=== PATIENT | female | born 2000 | race Caucasian/White ===

== ENCOUNTER 2024-07-20 00:47 | Inpatient (IN) ==
[2024-07-20] MEDS: predniSONE 20 MG TAB PO STA (01:28)
[2024-07-20] MEDS: ALBUT/IPRATROP 3MG/0.5MG NEB 3 ML VIAL NEB STA (01:28)
[2024-07-20] MEDS: SODIUM CHLORIDE 0.9% 1,000 ML IV ONE ×2 (01:28→16:59)
[2024-07-20 01:59] LABS: Albumin Globulin Ratio 1.2 (0.9-2); Albumin Level 4.2 gm/dl (3.4-5.0); BUN Creatinine Ratio 8.6 (10-20); Bilirubin,Total 0.5 mg/dl (0.2-1.0); Calcium 9.4 mg/dl (8.6-10.3); Creatinine Clr Calc Pharmacy 112.2 ml/min; Globulin 3.6 gm/dl (2.5-4.0); Potassium 3.8 mmol/L (3.5-5.1); Total Protein 7.8 gm/dl (6.0-8.3)
[2024-07-20 02:16] LABS: Hematocrit (blood only) 40.7 % (37.0-47.0); Hemoglobin 14.3 g/dl (12.0-16.0); Mean Corpuscular Hemoglobin 29.5 pg (25.0-34.0); Mean Corpuscular Hgb Conc 35.1 g/dL (32.0-36.0); Mean Corpuscular Volume 84.1 fL (80.0-100.0); Mean Platelet Volume 11.5 fL (9.4-12.4); Platelet Count 277 K/uL (130-400); RDW Coefficient of Variation 11.5 % (11.5-14.5); RDW Standard Deviation 34.2 fL (36.4-46.3); Red Blood Count 4.84 M/uL (4.20-5.40); White Blood Count 9.51 K/ul (4.8-10.8)
[2024-07-20 02:17] LABS: Basophils # (auto) 0.06 K/uL (0.00-0.20); Basophils % (auto) 0.6 %; Eosinophils # (auto) 0.29 K/uL (0.00-0.50); Immature Granulocytes # (auto) 0.05 K/uL (0.01-0.20); Immature Granulocytes % (auto) 0.5 %; Lymphocytes # (auto) 1.71 K/uL (1.20-3.40); Monocytes # (auto) 1.04 K/uL (0.11-0.59); Monocytes % (auto) 10.9 %; Neutrophils # (auto) 6.36 K/uL (1.40-6.50); Polychromasia 1+
[2024-07-20 02:36] LABS: Adenovirus PCR Not Detected (NotDetected); Bordetella parapertussis PCR Not Detected (NotDetected); Bordetella pertussis PCR Not Detected (NotDetected); Chlamydia pneumoniae PCR Not Detected (NotDetected); Coronavirus 229E PCR Not Detected (NotDetected); Coronavirus CoV-2 (COVID19)PCR Not Detected (NotDetected); Coronavirus HKU1 PCR Not Detected (NotDetected); Coronavirus NL63 PCR Not Detected (NotDetected); Coronavirus OC43PCR Not Detected (NotDetected); Human Metapneumovirus PCR Not Detected (NotDetected); Influenza A PCR Not Detected (NotDetected); Influenza B PCR Not Detected (NotDetected); Mycoplasma pneumoniae PCR DETECTED (NotDetected); Parainfluenza Virus 1 PCR Not Detected (NotDetected); Parainfluenza Virus 2 PCR Not Detected (NotDetected); Parainfluenza Virus 3 PCR Not Detected (NotDetected); Parainfluenza Virus 4 PCR Not Detected (NotDetected); Respiratory Syncytial VirusPCR Not Detected (NotDetected); Rhinovirus/Enterovirus PCR Not Detected (NotDetected)
[2024-07-20] MEDS: OPTIRAY 320 125ml IV ONE (03:13)
[2024-07-20] MEDS: AZITHROMYCIN 250 MG TAB PO ONE (03:36)
[2024-07-20] MEDS: CEFEPIME 2000MG 2,000 MG/20 ML SYR IV STA (03:36)
--- NOTE | 2024-07-20 04:18 | CT Scan Report ---
EXAM: CT angio chest PE protocol CLINICAL HISTORY: SOB, atypical cxr as outpatient 117 cc opti 320 TECHNIQUE: Contiguous axial images were obtained from the neck base through the upper abdomen following intravenous administration of iodinated contrast material. Angiographic images were processed, 3D MIP images were acquired for interpretation. If IV contrast material had not been administered, the likelihood of detecting abnormalities relevant to the patient's condition would have been substantially decreased. Coronal and sagittal 3-D MIPs were likewise performed and indicated to increase the sensitivity of detectin diffuse clinically relevant pathology. CT scan was performed according to ALARA (as low as reasonable achievable). COMPARISON: - FINDINGS: Adequate contrast bolus without evidence of pulmonary embolism. The central airways are patent. A large patch of consolidation is seen in the left lower lobe of the lung with air-bronchogramn The rest of the lungs are clear. No pleural effusion. The heart, aorta, and pulmonary arteries are of normal size and configuration. There are no appreciable coronary artery and aortic atherosclerotic calcifications. No pericardial effusion is identified. The thyroid is unremarkable. No mediastinal, hilar, or axillary lymphadenopathy is noted. No suspicious lytic or sclerotic osseous lesions are identified. IMPRESSION: 1. No evidence of pulmonary embolism 2. Left lower lobe pneumonic consolidation Electronically signed by Willie Harrison 07-20-2024 04:18 AM
--- NOTE | 2024-07-20 04:44 | History & Physical Report ---
Date of Service July 20, 2024 Assessment & Plan (1) Hypoxia: Plan: 24-year-old female with past med history significant for autism as per mother and who was recently diagnosed with pneumonia comes because of rash from amoxicillin and found to have hypoxia. Mother is in the room. Patient states on she had some scratchy throat. Next day she felt fatigue, congested, cough and fevers and was feeling weak. Initially thought it was flu. Symptoms persisted and was feeling short of breath on exertion went to PCP last Saturday on July 18. Chest x-ray was done which showed left lower lobe pneumonia. Amoxicillin and azithromycin were prescribed. But mother went through the side effects of azithromycin and as patient was having palpitations she thought she will discuss with Doctors before starting it and it was not given. Patient took only amoxicillin. After starting amoxicillin patient developed some rash on her left upper extremity for that reason they came to the ER. By the time patient came to the ER the rash has resolved. But in the ER she was found to be hypoxic 87% on room air and somewhat tachycardic and hypotensive ,blood pressure 84/52. With oxygen 2 L she is saturating fine and with fluids blood pressure improved and tachycardia improved. Currently resting comfortably and hemodynamically stable and able to give her history. Currently denies any headache. Vision is okay. No runny nose. Feels some congestion in the left ear. Denies any chest pain. No nausea. Appetite is not great. No abdominal pain. Normal bowel and bladder movements. Hypoxia and hypotension and tachycardia Community-acquired pneumonia CTA chest shows left lower lobe pneumonia. No PE Respiratory bio fire came back positive for mycoplasma pneumonia Requiring 2 L oxygen Tachycardia and blood pressure improved with the fluids Will continue gentle fluids Got p.o. azithromycin and cefepime in the ER Will continue with IV azithromycin 500 mg daily and Rocephin for now Monitor for response DVT prophylaxis SCDs Heparin subcu Disposition Med/telemetry Full code History of Present Illness Chief Complaint: Hypoxia and pneumonia Primary Care Provider: Florencia Purvis PA-C 24-year-old female with past med history significant for autism as per mother and who was recently diagnosed with pneumonia comes because of rash from amoxicillin and found to have hypoxia. Mother is in the room. Patient states on she had some scratchy throat. Next day she felt fatigue, congested, cough and fevers and was feeling weak. Initially thought it was flu. Symptoms persisted and was feeling short of breath on exertion went to PCP last Saturday on July 18. Chest x-ray was done which showed left lower lobe pneumonia. Amoxicillin and azithromycin were prescribed. But mother went through the side effects of azithromycin and as patient was having palpitations she thought she will discuss with Doctors before starting it and it was not given. Patient took only amoxicillin. After starting amoxicillin patient developed some rash on her left upper extremity for that reason they came to the ER. By the time patient came to the ER the rash has resolved. But in the ER she was found to be hypoxic 87% on room air and somewhat tachycardic and hypotensive ,blood pressure 84/52. With oxygen 2 L she is saturating fine and with fluids blood pressure improved and tachycardia improved. Currently resting comfortably and hemodynamically stable and able to give her history. Currently denies any headache. Vision is okay. No runny nose. Feels some congestion in the left ear. Denies any chest pain. No nausea. Appetite is not great. No abdominal pain. Normal bowel and bladder movements. Past medical history. As mentioned above Past surgical history. None as per records Social history. No smoking. No alcohol use. No drug use. Family history. Mother has history of carditis with SVT and Lyme disease Allergies Allergy/AdvReac Type Severity Reaction Status Date / Time Milk Containing Products AdvReac Intermediate TIRED, Verified 01/01/24 23:26 (Dairy) EMOTIONAL, A BABY--SEVERE GI UPSET Home Medications Medication Instructions Recorded Confirmed Type amoxicillin 500 mg capsule 1,000 mg PO TID 07/20/24 07/20/24 History azithromycin 250 mg tablet 250 mg PO UD 07/20/24 07/20/24 History dextroamphetamine-amphetamine ER 15 mg PO UD 07/20/24 07/20/24 History 15 mg 24hr capsule,extend release Past Med/Surg History Problem List (Updated 07/20/24 @ 06:38 by Vazquez Leonardo PA-C) Mycoplasma infection (Acute) Acute pneumonia (Acute) Hypoxia (Acute) Head concussion (Acute) No known drug allergy (Chronic) No known health problems (Chronic) Social History Smoking Status: Never smoker Hx Alcohol Use: No Hx Substance Use: No Preferred Language: Bengali Communication Ability: Effective Early Childhood Director Required: No Beliefs That Will Affect Care: None Current Living Situation: Parent Current Living Situation Comment: Lives with mother Other Information That Helps Us Care for You: No Feels Safe at Home: Yes Safety Concerns: Feels Safe At This Time Assistive Devices: None Review of Systems Review of Systems: All systems reviewed & are unremarkable except as noted in HPI & below Physical Exam Physical Exam: General- Not in distress. Head- atraumatic Eyes- PERRL. ENT- oropharynx clear Neck- supple, no JVD. Lungs- clear to auscultation no wheezing or crackles Heart- regular rate and rhythm; no murmur, no gallop. Abdomen- normal bowel sounds, no distension seen Extremities- no pretibial edema, no erythema seen Neuro- alert, oriented PERRL, no facial palsy; no dysarthria; moves extremities Results & Data Results & Data Vital Signs (Past 12 Hours) Vital Signs Temp Pulse Pulse Resp BP BP Pulse Ox 07/20/24 02:00 104 H 28 H 126/71 94 07/20/24 01:30 90 24 94/77 L 96 07/20/24 01:15 95 07/20/24 01:10 95 H 24 95/63 L 89 L 07/20/24 01:06 94 H 07/20/24 01:00 07/20/24 00:51 37.5 C 102 H 18 84/52 L 96 O2 Del Method O2 Flow Rate FiO2 07/20/24 02:00 Nasal Cannula 2 07/20/24 01:30 Nasal Cannula 2 07/20/24 01:15 Nasal Cannula 2 89 07/20/24 01:10 Room Air 07/20/24 01:06 07/20/24 01:00 Room Air 07/20/24 00:51 Room Air Diagnostic Findings Laboratory Results WBC 9.51 K/ul (4.8-10.8) 07/20/24 01:20 RBC 4.84 M/uL (4.20-5.40) 07/20/24 01:20 Hgb 14.3 g/dl (12.0-16.0) 07/20/24 01:20 Hct 40.7 % (37.0-47.0) 07/20/24 01:20 MCV 84.1 fL (80.0-100.0) 07/20/24 01:20 MCH 29.5 pg (25.0-34.0) 07/20/24 01:20 MCHC 35.1 g/dL (32.0-36.0) 07/20/24 01:20 RDW Std Deviation 34.2 fL (36.4-46.3) L 07/20/24 01:20 RDW Coeff of Lilliana 11.5 % (11.5-14.5) 07/20/24 01:20 Plt Count 277 K/uL (130-400) 07/20/24 01:20 MPV 11.5 fL (9.4-12.4) 07/20/24 01:20 Immature Gran % (Auto) 0.5 % 07/20/24 01:20 Neut % (Auto) 67.0 % 07/20/24 01:20 Lymph % (Auto) 18.0 % 07/20/24 01:20 Beadle % (Auto) 10.9 % 07/20/24 01:20 Eos % (Auto) 3.0 % 07/20/24 01:20 Baso % (Auto) 0.6 % 07/20/24 01:20 Neut # (Auto) 6.36 K/uL (1.40-6.50) 07/20/24 01:20 Lymph # (Auto) 1.71 K/uL (1.20-3.40) 07/20/24 01:20 Beadle # (Auto) 1.04 K/uL (0.11-0.59) H 07/20/24 01:20 Eos # (Auto) 0.29 K/uL (0.00-0.50) 07/20/24 01:20 Baso # (Auto) 0.06 K/uL (0.00-0.20) 07/20/24 01:20 Immature Gran # (Auto) 0.05 K/uL (0.01-0.20) 07/20/24 01:20 Polychromasia 1+ 07/20/24 01:20 Sodium 138 mmol/L (136-145) 07/20/24 01:20 Potassium 3.8 mmol/L (3.5-5.1) 07/20/24 01:20 Chloride 103 mmol/L (98-107) 07/20/24 01:20 Carbon Dioxide 27 mmol/L (21-32) 07/20/24 01:20 Anion Gap 8 (3-11) 07/20/24 01:20 BUN 6 mg/dl (6-23) 07/20/24 01:20 Creatinine 0.70 mg/dl (0.6-1.2) 07/20/24 01:20 Est Cr Clr Drug Dosing 112.2 ml/min 07/20/24 01:20 eGFR 125.33 07/20/24 01:20 BUN/Creatinine Ratio 8.6 (10-20) L 07/20/24 01:20 Glucose 104 mg/dl (70-99(Fasting)) H 07/20/24 01:20 Lactate 1.0 mmol/L (0.4-2.0) 07/20/24 01:20 Calcium 9.4 mg/dl (8.6-10.3) 07/20/24 01:20 Total Bilirubin 0.5 mg/dl (0.2-1.0) 07/20/24 01:20 AST 19 U/L (13-39) 07/20/24 01:20 ALT 11 U/L (7-52) 07/20/24 01:20 Alkaline Phosphatase 58 U/L (34-104) 07/20/24 01:20 Total Protein 7.8 gm/dl (6.0-8.3) 07/20/24 01:20 Albumin 4.2 gm/dl (3.4-5.0) 07/20/24 01:20 Globulin 3.6 gm/dl (2.5-4.0) 07/20/24 01:20 Albumin/Globulin Ratio 1.2 (0.9-2) 07/20/24 01:20 Procalcitonin < 0.02 ng/ml (0-0.5) 07/20/24 01:20 Adenovirus (PCR) Not Detected (NotDetected) 07/20/24 01:23 B. pertussis DNA (PCR) Not Detected (NotDetected) 07/20/24 01:23 B.parapertussis DNA PCR Not Detected (NotDetected) 07/20/24 01:23 C. pneumoniae DNA (PCR) Not Detected (NotDetected) 07/20/24 01:23 Coronavirus OC43 (PCR) Not Detected (NotDetected) 07/20/24 01:23 Coronavirus HKU1 (PCR) Not Detected (NotDetected) 07/20/24 01:23 Coronavirus 229E (PCR) Not Detected (NotDetected) 07/20/24 01:23 SARS-CoV-2 (PCR) Not Detected (NotDetected) 07/20/24 01:23 Coronavirus NL63 (PCR) Not Detected (NotDetected) 07/20/24 01:23 Human Metapneumovir PCR Not Detected (NotDetected) 07/20/24 01:23 Influenza Type A (PCR) Not Detected (NotDetected) 07/20/24 01:23 Influenza Type B (PCR) Not Detected (NotDetected) 07/20/24 01:23 M. pneumoniae (PCR) DETECTED (NotDetected) A 07/20/24 01:23 Parainfluenza 1 (PCR) Not Detected (NotDetected) 07/20/24 01:23 Parainfluenza 2 (PCR) Not Detected (NotDetected) 07/20/24 01:23 Parainfluenza 3 (PCR) Not Detected (NotDetected) 07/20/24 01:23 Parainfluenza 4 (PCR) Not Detected (NotDetected) 07/20/24 01:23 RSV (PCR) Not Detected (NotDetected) 07/20/24 01:23 Entero/Rhino (PCR) Not Detected (NotDetected) 07/20/24 01:23 Impressions Chest CTA 07/20/24 01:11 EXAM: CT angio chest PE protocol CLINICAL HISTORY: SOB, atypical cxr as outpatient 117 cc opti 320 TECHNIQUE: Contiguous axial images were obtained from the neck base through the upper abdomen following intravenous administration of iodinated contrast material. Angiographic images were processed, 3D MIP images were acquired for interpretation. If IV contrast material had not been administered, the likelihood of detecting abnormalities relevant to the patient's condition would have been substantially decreased. Coronal and sagittal 3-D MIPs were likewise performed and indicated to increase the sensitivity of detectin diffuse clinically relevant pathology. CT scan was performed according to ALARA (as low as reasonable achievable). COMPARISON: - FINDINGS: Adequate contrast bolus without evidence of pulmonary embolism. The central airways are patent. A large patch of consolidation is seen in the left lower lobe of the lung with air-bronchogramn The rest of the lungs are clear. No pleural effusion. The heart, aorta, and pulmonary arteries are of normal size and configuration. There are no appreciable coronary artery and aortic atherosclerotic calcifications. No pericardial effusion is identified. The thyroid is unremarkable. No mediastinal, hilar, or axillary lymphadenopathy is noted. No suspicious lytic or sclerotic osseous lesions are identified. IMPRESSION: 1. No evidence of pulmonary embolism 2. Left lower lobe pneumonic consolidation Electronically signed by Willie Harrison 07-20-2024 04:18 AM Code Status & VTE Plan VTE Prophylaxis Plan VTE Prophylaxis will be ordered: Yes
--- NOTE | 2024-07-20 05:25 | Emergency Department Note ---
History of Present Illness General Chief complaint: Allergic Reaction Stated complaint: REACTION TO ANTIBIOTICS FOR PNEUMONIA Time Seen by Provider: 07/20/24 00:56 History of Present Illness This is a 24-year-old female presenting to the emergency department for evaluation of possible allergic reaction to her antibiotics. Patient has been sick for 10 days and went to a [facility] outpatient clinic 2 days ago where she was diagnosed with pneumonia. Patient was given prescriptions for Augmentin 1 g 3 times daily, as well as a Z-Broderick. The patient is accompanied by her mother who assists in the history. Mother has concerns about the antibiotics, and patient only started the antibiotic about 2 hours ago, and even then only took 1 dose of the Augmentin. Patient was concerned as she had a small outbreak of rash on her left wrist. This seems to have improved after arriving in the ER. Patient does not have full body rash or facial swelling. She has not had distinct fevers or chills. She has not taken any of the Zithromax, or any other doses of her Augmentin. Patient is otherwise usually healthy. Home Medications Medication Instructions Recorded Confirmed Type amoxicillin 500 mg capsule 1,000 mg PO TID 07/20/24 07/20/24 History azithromycin 250 mg tablet 250 mg PO UD 07/20/24 07/20/24 History dextroamphetamine-amphetamine ER 15 mg PO UD 07/20/24 07/20/24 History 15 mg 24hr capsule,extend release Allergies Allergy/AdvReac Type Severity Reaction Status Date / Time Milk Containing Products AdvReac Intermediate TIRED, Verified 01/01/24 23:26 (Dairy) EMOTIONAL, A BABY--SEVERE GI UPSET Past Med/Surg History Problem List (Updated 07/20/24 @ 06:38 by Vazquez Leonardo PA-C) Mycoplasma infection (Acute) Acute pneumonia (Acute) Hypoxia (Acute) Head concussion (Acute) No known drug allergy (Chronic) No known health problems (Chronic) Social History Smoking Status: Never smoker Preferred Language: Romansh Feels Safe at Home: Yes Review of Systems A total of 10 systems reviewed and were otherwise negative Physical Exam Vital Signs Vital Signs - 24 hr 07/20/24 00:51 07/20/24 01:00 07/20/24 01:06 Temperature 37.5 C Temperature Source Temporal Artery Scan Pulse Rate 102 H 94 H Pulse Rate [Finger] Pulse Rate from SpO2 Sensor Respiratory Rate 18 Respiratory Effort / Characteristics Non-Labored Spontaneous Respiratory Depth Normal Blood Pressure 84/52 L Blood Pressure [Right Arm] Blood Pressure Mean 62 Blood Pressure Mean [Right Arm] Pulse Oximetry 96 Oxygen Delivery Method Room Air Room Air Oxygen Flow Rate Fraction of Inspired Oxygen Sepsis Recent Fever Within 48 Hours Yes Sepsis New/Unexplained Change in Mental Status No Sepsis Action Taken by Nursing No Action Required 07/20/24 01:10 07/20/24 01:15 07/20/24 01:30 Temperature Temperature Source Pulse Rate Pulse Rate [Finger] 95 H 90 Pulse Rate from SpO2 Sensor Respiratory Rate 24 24 Respiratory Effort / Characteristics Respiratory Depth Blood Pressure Blood Pressure [Right Arm] 95/63 L 94/77 L Blood Pressure Mean Blood Pressure Mean [Right Arm] 73 82 Pulse Oximetry 89 L 95 96 Oxygen Delivery Method Room Air Nasal Cannula Nasal Cannula Oxygen Flow Rate 2 2 Fraction of Inspired Oxygen 89 Sepsis Recent Fever Within 48 Hours Sepsis New/Unexplained Change in Mental Status Sepsis Action Taken by Nursing 07/20/24 02:00 07/20/24 03:24 07/20/24 04:03 Temperature Temperature Source Pulse Rate 104 H 98 H 91 H Pulse Rate [Finger] Pulse Rate from SpO2 Sensor 100 H 91 H Respiratory Rate 28 H 38 H 18 Respiratory Effort / Characteristics Respiratory Depth Blood Pressure 126/71 110/70 112/71 Blood Pressure [Right Arm] Blood Pressure Mean 89 83 84 Blood Pressure Mean [Right Arm] Pulse Oximetry 94 97 96 Oxygen Delivery Method Nasal Cannula Nasal Cannula Oxygen Flow Rate 2 2 Fraction of Inspired Oxygen Sepsis Recent Fever Within 48 Hours Sepsis New/Unexplained Change in Mental Status Sepsis Action Taken by Nursing 07/20/24 04:15 Temperature Temperature Source Pulse Rate 86 Pulse Rate [Finger] Pulse Rate from SpO2 Sensor 87 Respiratory Rate 24 Respiratory Effort / Characteristics Respiratory Depth Blood Pressure Blood Pressure [Right Arm] Blood Pressure Mean Blood Pressure Mean [Right Arm] Pulse Oximetry 97 Oxygen Delivery Method Oxygen Flow Rate Fraction of Inspired Oxygen Sepsis Recent Fever Within 48 Hours Sepsis New/Unexplained Change in Mental Status Sepsis Action Taken by Nursing VITALS: Vitals are noted on the nurse's note and reviewed by myself. Vital signs with hypotension, tachycardia, and hypoxia GENERAL: Well-developed, well-nourished, white female who appears ill on arrival. She is overall pleasant and cooperative. HEAD: Normocephalic atraumatic. EARS: External ear normal. External auditory canals clear, tympanic membranes pearly jon without erythema or effusion bilaterally. EYES: Pupils equal round and reactive to light and accommodation. Conjunctivae without injection, sclerae without icterus. Extraocular movements intact. NOSE: Patent, turbinates without inflammation or discharge. MOUTH: Mucous membranes moist. Tonsils are not enlarged. Pharynx without erythema, blood, or exudate. Uvula midline. Airway patent. NECK: Supple without nuchal rigidity. No lymphadenopathy. No thyromegaly. Cervical spine is nontender. HEART: Tachycardic rate with regular rhythm LUNGS: Scattered wheezing throughout with bibasilar crackles. ABDOMEN: Positive normal bowel sounds x 4. Soft, nontender, without masses or organomegaly. No guarding or rebound tenderness. MUSCULOSKELETAL: No muscle atrophy, erythema, or edema noted. Full range of motion in all extremities. Course Administered Medications Discontinued Medications Albuterol (Albut/Ipratrop 3mg/0.5mg Neb 3 Ml Vial) 3 ml NEB NOW STA; Protocol Stop: 07/20/24 01:14 Last Admin: 07/20/24 01:28 Dose: 3 ml Documented By: SAVANNAH Azithromycin (Azithromycin 250 Mg Tab) 500 mg PO NOW ONE Stop: 07/20/24 03:21 Last Admin: 07/20/24 03:36 Dose: 500 mg Documented By: JERRY Sodium Chloride (Nss) 1,000 mls @ 999 mls/hr IV .Q1H1M ONE Stop: 07/20/24 02:13 Last Infusion: 07/20/24 02:42 Dose: Infused Documented By: Admin: 07/20/24 01:28 Dose: 999 mls/hr Documented By: SAVANNAH Cefepime HCl (Maxipime 2000mg) 2,000 mg in 20 mls @ 5 mls/min IV NOW STA; Protocol Stop: 07/20/24 03:23 Last Admin: 07/20/24 03:36 Dose: 5 mls/min Documented By: JERRY Ioversol (Optiray 320 125ml) 117 ml IV ONCE ONE Stop: 07/20/24 03:14 Last Admin: 07/20/24 03:13 Dose: 117 ml Documented By: JN Prednisone (Prednisone 20 Mg Tab) 40 mg PO NOW STA Stop: 07/20/24 01:10 Last Admin: 12/09/24 01:28 Dose: 40 mg Documented By: CLAIREW Medical Decision Making Differential Diagnosis Differential diagnosis: Etiologies such as viral syndrome, otitis, pharyngitis, pneumonia, influenza, meningitis, urinary tract infection, septic arthritis, soft tissue infectious process, intra-abdominal process, sepsis, bacteremia, as well as others were entertained. Laboratory Data 07/20/24 01:20 07/20/24 01:20 Lab Results 07/20/24 07/20/24 Range/Units 01:20 01:23 WBC 9.51 (4.8-10.8) K/ul RBC 4.84 (4.20-5.40) M/uL Hgb 14.3 (12.0-16.0) g/dl Hct 40.7 (37.0-47.0) % MCV 84.1 (80.0-100.0) fL MCH 29.5 (25.0-34.0) pg MCHC 35.1 (32.0-36.0) g/dL RDW Std Deviation 34.2 L (36.4-46.3) fL RDW Coeff of [place] 11.5 (11.5-14.5) % Plt Count 277 (130-400) K/uL MPV 11.5 (9.4-12.4) fL Immature Gran % (Auto) 0.5 % Neut % (Auto) 67.0 % Lymph % (Auto) 18.0 % [place] % (Auto) 10.9 % Eos % (Auto) 3.0 % Baso % (Auto) 0.6 % Neut # (Auto) 6.36 (1.40-6.50) K/uL Lymph # (Auto) 1.71 (1.20-3.40) K/uL [place] # (Auto) 1.04 H (0.11-0.59) K/uL Eos # (Auto) 0.29 (0.00-0.50) K/uL Baso # (Auto) 0.06 (0.00-0.20) K/uL Immature Gran # (Auto) 0.05 (0.01-0.20) K/uL Polychromasia 1+ Sodium 138 (136-145) mmol/L Potassium 3.8 (3.5-5.1) mmol/L Chloride 103 (98-107) mmol/L Carbon Dioxide 27 (21-32) mmol/L Anion Gap 8 (3-11) BUN 6 (6-23) mg/dl Creatinine 0.70 (0.6-1.2) mg/dl Est Cr Clr Drug Dosing 112.2 ml/min eGFR 125.33 BUN/Creatinine Ratio 8.6 L (10-20) Glucose 104 H (70-99(Fasting)) mg/dl Lactate 1.0 (0.4-2.0) mmol/L Calcium 9.4 (8.6-10.3) mg/dl Total Bilirubin 0.5 (0.2-1.0) mg/dl AST 19 (13-39) U/L ALT 11 (7-52) U/L Alkaline Phosphatase 58 (34-104) U/L Total Protein 7.8 (6.0-8.3) gm/dl Albumin 4.2 (3.4-5.0) gm/dl Globulin 3.6 (2.5-4.0) gm/dl Albumin/Globulin Ratio 1.2 (0.9-2) Procalcitonin < 0.02 (0-0.5) ng/ml Adenovirus (PCR) Not Detected (NotDetected) B. pertussis DNA (PCR) Not Detected (NotDetected) B.parapertussis DNA PCR Not Detected (NotDetected) C. pneumoniae DNA (PCR) Not Detected (NotDetected) Coronavirus OC43 (PCR) Not Detected (NotDetected) Coronavirus HKU1 (PCR) Not Detected (NotDetected) Coronavirus 229E (PCR) Not Detected (NotDetected) SARS-CoV-2 (PCR) Not Detected (NotDetected) Coronavirus NL63 (PCR) Not Detected (NotDetected) Human Metapneumovir PCR Not Detected (NotDetected) Influenza Type A (PCR) Not Detected (NotDetected) Influenza Type B (PCR) Not Detected (NotDetected) M. pneumoniae (PCR) DETECTED A (NotDetected) Parainfluenza 1 (PCR) Not Detected (NotDetected) Parainfluenza 2 (PCR) Not Detected (NotDetected) Parainfluenza 3 (PCR) Not Detected (NotDetected) Parainfluenza 4 (PCR) Not Detected (NotDetected) RSV (PCR) Not Detected (NotDetected) Entero/Rhino (PCR) Not Detected (NotDetected) Imaging Data Radiologist's Impression: Chest CTA 07/20/24 01:11 EXAM: CT angio chest PE protocol CLINICAL HISTORY: SOB, atypical cxr as outpatient 117 cc opti 320 TECHNIQUE: Contiguous axial images were obtained from the neck base through the upper abdomen following intravenous administration of iodinated contrast material. Angiographic images were processed, 3D MIP images were acquired for interpretation. If IV contrast material had not been administered, the likelihood of detecting abnormalities relevant to the patient's condition would have been substantially decreased. Coronal and sagittal 3-D MIPs were likewise performed and indicated to increase the sensitivity of detectin diffuse clinically relevant pathology. CT scan was performed according to ALARA (as low as reasonable achievable). COMPARISON: - FINDINGS: Adequate contrast bolus without evidence of pulmonary embolism. The central airways are patent. A large patch of consolidation is seen in the left lower lobe of the lung with air-bronchogramn The rest of the lungs are clear. No pleural effusion. The heart, aorta, and pulmonary arteries are of normal size and configuration. There are no appreciable coronary artery and aortic atherosclerotic calcifications. No pericardial effusion is identified. The thyroid is unremarkable. No mediastinal, hilar, or axillary lymphadenopathy is noted. No suspicious lytic or sclerotic osseous lesions are identified. IMPRESSION: 1. No evidence of pulmonary embolism 2. Left lower lobe pneumonic consolidation Electronically signed by Willie Harrison 07-20-2024 04:18 AM MDM Narrative Physical exam and history were performed. Nursing notes, EMR, and Medication List were personally reviewed. No social concerns were identified as barriers to patients care. Patient appears to have history of outpatient pneumonia diagnosed 2 days ago. For some reason there was delay in the patient starting antibiotics, and patient now has report of rash bring her to the ER. On arrival the patient's vitals are very concerning as she is hypotensive and has an O2 saturation of 87%. Patient is also tachycardic. There is no appreciable rash on arrival. IV access was established and labs were obtained. Blood cultures were gathered. Bio fire performed. CT scan of the chest was also obtained. Patient was given a DuoNeb and oral prednisone here in the ER. Patient's blood work is as above and was reviewed. She does not have a significant elevated white blood cell count, gross anemia, bandemia, or significant electrolyte imbalance. Transaminases not diagnostic. Procalcitonin and lactic are negative. Bio fire is positive for mycoplasma. Blood cultures are pending. CT scan was performed and reviewed by myself and radiology. CT scan does show a large left-sided pneumonia which does correlate with the patient's symptoms. I suspect this could be related to mycoplasma pneumonia, and patient was given a dose of cefepime and Zithromax here in the ER. Overall the patient does not appear well for discharge. Her vitals are concerning despite her essentially normal labs. Her imaging study is impressive and she does have a large pneumonia and escalation of care is felt to be necessary. Case was discussed with the on-call hospitalist team who agreed to evaluate her here in the ER. Please see their dictation for further patient course, plan, disposition. The chart was completed utilizing [employer] Speech Voice Recognition Software. Grammatical errors, random word insertions, pronoun errors, and incomplete sentences are an occasional consequence of this system due to software limitations, ambient noise, and hardware issues. Any formal questions or concerns about the content, text, or information contained within the body of this dictation should be directly addressed to the provider for clarification. Impression & Plan Acute pneumonia, Hypoxia, Mycoplasma infection Discharge Plan Visit Data Chief Complaint: Allergic Reaction Stated Complaint: REACTION TO ANTIBIOTICS FOR PNEUMONIA ED Provider: Bro Preston ED Midlevel Provider: Vazquez Leonardo Discharge Problem: Acute pneumonia, Hypoxia, Mycoplasma infection Patient Disposition: Admitted As Inpatient Discharge Instructions Interventions: ED Discharge Assessment Last Done: 07/20/24 05:59
[2024-07-20] MEDS ORDERED: NITROGLYCERIN SL 0.4 MG/TAB TAB SL PRN (06:30)
[2024-07-20] MEDS ORDERED: guaiFENesin SUGAR FREE 200 MG/10 ML UDC PO PRN (06:30)
[2024-07-20] MEDS ORDERED: POLYETHYLENE (MIRALAX) 17 GM PACK PO PRN (06:30)
[2024-07-20] MEDS ORDERED: ACETAMINOPHEN 325 MG TAB PO PRN (06:30)
[2024-07-20] MEDS: SODIUM CHLORIDE 0.9% 1,000 ML IV SCH (06:53)
[2024-07-20] MEDS: HEPARIN SOD 5,000 UNIT/0.5 ML VIAL SQ SCH (09:47)
--- NOTE | 2024-07-20 10:18 | Electrocardiogram Report ---
Test Reason : Blood Pressure : */* mmHG Vent. Rate : 91 BPM Atrial Rate : 91 BPM P-R Int : 148 ms QRS Dur : 78 ms QT Int : 342 ms P-R-T Axes : 68 82 69 degrees QTcB Int : 420 ms Normal sinus rhythm Normal ECG When compared with ECG of 01-Jan-2024 21:17, No significant change was found Confirmed by Don Plascencia ([id number]) on 07/20/2024 10:17:59 AM Referred By: REFERRED SELF Confirmed By: Don Plascencia
--- NOTE | 2024-07-20 10:19 | Communication Note ---
Date of Service: July 20, 2024 24 yo female with atypical pneumonia 2/2 mycoplasma pneumoniae requiring 2 L O2 at this time Reports feeling some subjective improvement overall QTC 420 EXAM: IMPRESSION: 1. No evidence of pulmonary embolism 2. Left lower lobe pneumonic consolidation #Acute hypoxic resp failure 2/2 pneumonia #Atypical pneumonia 2/2 mycoplasma continue droplet precautions continue antibiotics with azithromycin and CTX wean o2 as able symptomatic control
[2024-07-20] MEDS: cefTRIAXone SODIUM 2,000 MG/50 ML BAG IV SCH (15:20)
[2024-07-20] MEDS: guaiFENesin 600 MG TABCR PO SCH (20:05)
[2024-07-21] MEDS: AZITHROMYCIN 500 MG in SODIUM CHLORIDE 0.9% 250 ML IV SCH (03:28)
[2024-07-21] MEDS ORDERED: AZITHROMYCIN 500 MG VIAL IV SCH (04:00)
[2024-07-21] MEDS: AZITHROMYCIN 250 MG TAB PO ONE (05:05)
[2024-07-21 07:23] LABS: BUN Creatinine Ratio 11.7 (10-20); Calcium 8.4 mg/dl (8.6-10.3); Creatinine Clr Calc Pharmacy 130.3 ml/min; Magnesium 1.9 mg/dl (1.7-2.4); Potassium 4.7 mmol/L (3.5-5.1)
[2024-07-21 07:40] LABS: Hematocrit (blood only) 33.4 % (37.0-47.0); Hemoglobin 11.6 g/dl (12.0-16.0); Mean Corpuscular Hemoglobin 29.4 pg (25.0-34.0); Mean Corpuscular Hgb Conc 34.7 g/dL (32.0-36.0); Mean Corpuscular Volume 84.8 fL (80.0-100.0); Mean Platelet Volume 11.9 fL (9.4-12.4); Platelet Count 254 K/uL (130-400); RDW Coefficient of Variation 11.5 % (11.5-14.5); RDW Standard Deviation 35.2 fL (36.4-46.3); Red Blood Count 3.94 M/uL (4.20-5.40); White Blood Count 9.22 K/ul (4.8-10.8)
[2024-07-21 07:45] LABS: Agglutinated RBC 1+; Basophils # (auto) 0.07 K/uL (0.00-0.20); Basophils % (auto) 0.8 %; Eosinophils # (auto) 0.28 K/uL (0.00-0.50); Immature Granulocytes # (auto) 0.08 K/uL (0.01-0.20); Immature Granulocytes % (auto) 0.9 %; Lymphocytes # (auto) 2.48 K/uL (1.20-3.40); Lymphocytes % (auto) 26.9 %; Monocytes # (auto) 0.92 K/uL (0.11-0.59); Neutrophils # (auto) 5.39 K/uL (1.40-6.50); Neutrophils % (auto) 58.4 %
[2024-07-21] MEDS: SODIUM CHLORIDE 0.9% 1,000 ML IV ONE (08:02)
[2024-07-21] MEDS: SODIUM CHLOR 7% 4 ML NEB NEB SCH (08:32)
[2024-07-21] MEDS: ALBUT/IPRATROP 3MG/0.5MG NEB 3 ML VIAL NEB SCH (08:32)
[2024-07-21] MEDS: PSEUDOEPHEDRINE HCL 30 MG TAB PO STA (09:01)
[2024-07-21] MEDS: CETIRIZINE HCL 10 MG TABLET PO ONE (09:01)
[2024-07-21] MEDS: FLUTICASONE PROPIONATE NA SPR 16 GM BTL SCH (11:55)
--- NOTE | 2024-07-21 19:20 | Hospitalist Progress Note ---
Date of Service July 21, 2024 Assessment & Plan (1) Hypoxia: Plan: Ms. Brooke is a 24-year-old female with past med history significant for autism as per mother and who was recently diagnosed with pneumonia comes because of rash from amoxicillin and found to have hypoxia. Mother is in the room. Patient states on she had some scratchy throat. Next day she felt fatigue, congested, cough and fevers and was feeling weak. Patient found to have mycoplasma pneumonia. #Acute hypoxic resp failure 2/2 pneumonia #Atypical pneumonia 2/2 mycoplasma continue droplet precautions continue antibiotics with azithromycin and CTX wean o2 as able symptomatic control #Orthostatic hypotension encourage PO intake s/p IVF improving DVT prophylaxis SCDs, ambulate Disposition: potential d/c tomorrow Med/telemetry Full code Admission and Anticipated Discharge Date Admission Date: July 20, 2024 Subjective NAEO Reports some dizziness this am with standing up--reports it happens sometimes but worse today Endorses improvement in congestion and symptoms Physical Exam Constitutional: WD/WN, vitals as above Respiratory: normal respiratory effort, lungs clear to auscultation some diminished sounds in bibasilar airways Cardiovascular: RRR, no murmur, no edema Results & Data Results & Data Vital Signs (Past 12 Hours) Vital Signs Temp Pulse Pulse Resp BP Pulse Ox Pulse Ox 07/21/24 15:59 95 07/21/24 15:34 84 20 96 07/21/24 14:07 104 H 07/21/24 11:40 90 20 96 07/21/24 11:24 36.4 C L 101 H 18 92/62 L 94 07/21/24 10:24 07/21/24 08:39 80 18 93 07/21/24 07:28 36.7 C 74 18 86/55 L 93 07/21/24 07:28 93 O2 Del Method O2 Del Method O2 Flow Rate O2 Flow Rate 07/21/24 15:59 Room Air 07/21/24 15:34 Nasal Cannula 1 07/21/24 14:07 07/21/24 11:40 Nasal Cannula 1 07/21/24 11:24 Nasal Cannula 1 07/21/24 10:24 Nasal Cannula 1 07/21/24 08:39 Nasal Cannula 1 07/21/24 07:28 Nasal Cannula 1 07/21/24 07:28 Nasal Cannula 1 Laboratory Results Short CBC 07/21/24 Range/Units 05:26 WBC 9.22 (4.8-10.8) K/ul Hgb 11.6 L (12.0-16.0) g/dl Hct 33.4 L (37.0-47.0) % Plt Count 254 (130-400) K/uL BMP 07/21/24 05:26 Sodium 140 Potassium 4.7 D Chloride 109 H Carbon Dioxide 25 BUN 7 Creatinine 0.60 Glucose 82 Calcium 8.4 L Medications Administered Home Medications Medication Instructions Recorded Confirmed Last Taken amoxicillin 500 mg capsule 1,000 mg PO TID 07/20/24 07/20/24 Unknown azithromycin 250 mg tablet 250 mg PO UD 07/20/24 07/20/24 Unknown dextroamphetamine-amphetamine ER 15 mg PO UD 07/20/24 07/20/24 Unknown 15 mg 24hr capsule,extend release Active Medications Generic Name Dose Route Start Last Admin Trade Name Freq PRN Reason Stop Dose Admin Albuterol 3 ml 07/21/24 11:00 07/21/24 15:33 Albut/Ipratrop 3mg/0.5mg Neb 3 Ml Vial NEB 08/20/24 10:59 3 ml QIDR LUCIA Administration Protocol Fluticasone Propionate 2 sprays 07/21/24 11:00 07/21/24 11:55 Fluticasone Propionate Na Spr 16 Gm Btl NA 08/20/24 10:59 2 sprays DAILY LUCIA Administration Guaifenesin 600 mg 07/20/24 21:00 07/21/24 09:01 Guaifenesin 600 Mg Tabcr PO 08/19/24 20:59 600 mg Q12 LUCIA Administration Ceftriaxone Sodium 2,000 mg in 50 mls @ 100 mls/hr 07/20/24 16:00 07/21/24 16:24 Rocephin IV 07/30/24 15:59 Infused Q24H LUCIA Infusion Sodium Chloride 4 ml 07/21/24 07:50 07/21/24 08:32 Sodium Chlor 7% 4 Ml Neb NEB 08/20/24 07:49 4 ml BIDR LUCIA Administration
[2024-07-22] MEDS: AZITHROMYCIN 250 MG TAB PO SCH (09:34)
--- NOTE | 2024-07-22 15:31 | Hospitalist Progress Note ---
Date of Service July 22, 2024 Assessment & Plan (1) Hypoxia: Plan: per Dr. Evans's notes with addendum: Ms. Brooke is a 24-year-old female with past med history significant for autism as per mother and who was recently diagnosed with pneumonia comes because of rash from amoxicillin and found to have hypoxia. Mother is in the room. Patient states on she had some scratchy throat. Next day she felt fatigue, congested, cough and fevers and was feeling weak. Patient found to have mycoplasma pneumonia. #Acute hypoxic resp failure 2/2 pneumonia #Atypical pneumonia 2/2 mycoplasma continue droplet precautions continue antibiotics with azithromycin and CTX wean o2 as able symptomatic control 07/22 Continues to improve clinically Continue with ceftriaxone plus azithromycin, nebs, Mucinex Hopefully will be able to be discharged tomorrow #Orthostatic hypotension encourage PO intake s/p IVF improving DVT prophylaxis SCDs, ambulate Disposition: potential d/c tomorrow Med/telemetry Full code plan of care discussed with patient and her mother in detail and at length all questions answered they are understanding, agreeable, comfortable with the plan of care Admission and Anticipated Discharge Date Admission Date: July 20, 2024 Subjective Follow-up for mycoplasma pneumonia, etc. Seen resting in bed, comfortable, good spirits Patient's mother Juani at the bedside visiting Patient reports she continues to feel improved day by day Breathing is improving, less short of breath with ambulation today Less cough No chest pain No fevers or chills No other new symptoms Review of Systems Review of Systems: all noted and negative except for above Physical Exam Physical Exam: General- oriented x 3, not in distress, speaks in sentences with no effort or accessory muscle use Eyes- anicteric Neck- no JVD Lungs-Positive mild crackles left base, clear on the right No wheezing Heart- normal rate, regular rhythm; no murmurs Abdomen- normal bowel sounds, nondistended, soft, no tenderness Extremities- no pretibial edema, no calf tenderness Neuro- alert, oriented x 3; no gross focal neurologic deficits Skin- warm & dry Results & Data Results & Data Vital Signs (Past 12 Hours) Vital Signs Temp Pulse Pulse Pulse Pulse Resp Resp 07/22/24 15:25 36.4 C L 86 18 07/22/24 14:57 117 H 13 07/22/24 14:00 120 H 07/22/24 11:15 36.5 C 100 H 18 07/22/24 11:12 90 16 07/22/24 10:01 87 81 17 07/22/24 09:00 72 07/22/24 09:00 07/22/24 08:32 36.6 C 84 18 07/22/24 07:34 76 18 07/22/24 07:00 07/22/24 03:30 36.8 C 87 16 Resp BP Pulse Ox Pulse Ox Pulse Ox O2 Del Method O2 Del Method 07/22/24 15:25 96/62 L 94 Room Air 07/22/24 14:57 95 Room Air 07/22/24 14:00 07/22/24 11:15 95/63 L 94 Room Air 07/22/24 11:12 94 Room Air 07/22/24 10:01 17 92 90 07/22/24 09:00 07/22/24 09:00 Room Air 07/22/24 08:32 94/58 L 98 Room Air 07/22/24 07:34 95 Room Air 07/22/24 07:00 Room Air 07/22/24 03:30 94/60 L 95 Room Air FiO2 07/22/24 15:25 07/22/24 14:57 21 07/22/24 14:00 07/22/24 11:15 07/22/24 11:12 07/22/24 10:01 07/22/24 09:00 07/22/24 09:00 07/22/24 08:32 07/22/24 07:34 07/22/24 07:00 07/22/24 03:30 all noted and reviewed including below
[2024-07-22] MEDS: ADVANCED PROBIOTIC 625 MG CAPSULE PO SCH (16:02)
[2024-07-23 07:54] VITALS: RESP 18
[2024-07-23] MEDS: cefUROXime axetil 500 MG TAB PO SCH (09:54)
[2024-07-23] MEDS: SODIUM CHLORIDE 0.9% 1,000 ML IV ONE (11:09)
[2024-07-23 11:20] LABS: Basophils # (auto) 0.07 K/uL (0.00-0.20); Basophils % (auto) 0.9 %; Eosinophils % (auto) 2.6 %; Hematocrit (blood only) 35.9 % (37.0-47.0); Hemoglobin 12.3 g/dl (12.0-16.0); Immature Granulocytes # (auto) 0.09 K/uL (0.01-0.20); Immature Granulocytes % (auto) 1.2 %; Lymphocytes # (auto) 1.73 K/uL (1.20-3.40); Lymphocytes % (auto) 22.4 %; Mean Corpuscular Hemoglobin 30.1 pg (25.0-34.0); Mean Corpuscular Hgb Conc 34.3 g/dL (32.0-36.0); Mean Corpuscular Volume 87.8 fL (80.0-100.0); Mean Platelet Volume 10.7 fL (9.4-12.4); Monocytes # (auto) 0.71 K/uL (0.11-0.59); Monocytes % (auto) 9.2 %; Neutrophils # (auto) 4.91 K/uL (1.40-6.50); Neutrophils % (auto) 63.7 %; Platelet Count 349 K/uL (130-400); RDW Coefficient of Variation 11.9 % (11.5-14.5); RDW Standard Deviation 36.1 fL (36.4-46.3); Red Blood Count 4.09 M/uL (4.20-5.40); White Blood Count 7.71 K/ul (4.8-10.8)
[2024-07-23 11:37] LABS: BUN Creatinine Ratio 11.7 (10-20); Calcium 8.8 mg/dl (8.6-10.3); Creatinine Clr Calc Pharmacy 130.7 ml/min; Potassium 3.9 mmol/L (3.5-5.1)
[2024-07-23 15:08] VITALS: PULSE 85; TEMP 98.1; O2SAT 96
--- NOTE | 2024-07-23 16:08 | Discharge Summary ---
Discharge Summary Date of Service July 23, 2024 Principal Dx & Hospital Course #1 = Principal Diagnosis (1) Hypoxia: per Dr. Evans's notes with addendum: Ms. Brooke is a 24-year-old female with past med history significant for autism as per mother and who was recently diagnosed with pneumonia comes because of rash from amoxicillin and found to have hypoxia. Mother is in the room. Patient states on she had some scratchy throat. Next day she felt fatigue, congested, cough and fevers and was feeling weak. Patient found to have mycoplasma pneumonia. #Acute hypoxic resp failure 2/2 pneumonia #Atypical pneumonia 2/[address] chest: A large patch of consolidation is seen in the left lower lobe of the lung with air-bronchogramn Initially required oxygen supplementation Placed on ceftriaxone plus azithromycin Also given DuoNeb 4 times daily Mucinex Patient gradually improved, able to be weaned off O2 Completed course of azithromycin Clinically improved overall Discharge plan: Cefuroxime 500 mg p.o. twice daily x 6 more days to finish 10-day course Hypertonic saline nebs twice daily x 1 week Mucinex 1200 mg twice daily x 1 week Probiotics Continue spirometry and flutter valve at home #Orthostatic hypotension encourage PO intake s/p IVF improved #Episode of SVT Occurred in the morning at the day of discharge Lasted for about a minute Occurred after receiving DuoNeb treatment Also had a 15-minute episode of sinus tachycardia in the 140s Patient asymptomatic Patient and mother concerned about possible POTS given symptoms of intermittent palpitations, dizziness upon sitting up, etc. Discussed with patient and her mother at length Currently, patient is being treated for significant pneumonia which could affect heart rate measurements Echocardiogram obtained: Essentially normal as per emergency department Dr. Lindsey Normal left ventricular wall thickness Left ventricular systolic function is normal Left ventricular ejection fraction is 55 to 60% Left ventricular wall motion is normal Left ventricular diastolic function is normal No significant valvular disease Heart rate improved through the day, patient remained asymptomatic Advised to have formal evaluation for POTS disease by the emergency department after resolution of pneumonia, in 1 month or so Disposition Discharge to home Follow-up in PCP in 1 week plan of care discussed with patient and her mother in detail and at length all questions answered they are understanding, agreeable, comfortable with the plan of care Notes For Next Care Provider Medication Changes From Visit Cefuroxime-antibiotic for pneumonia Mucinex-for cough, loosening mucus Hypertonic saline nebulizer treatments-also for loosening mucus Flonase-for nasal congestion Admission HPI Per Admitting Provider 24-year-old female with past med history significant for autism as per mother and who was recently diagnosed with pneumonia comes because of rash from amoxicillin and found to have hypoxia. Mother is in the room. Patient states on she had some scratchy throat. Next day she felt fatigue, congested, cough and fevers and was feeling weak. Initially thought it was flu. Symptoms persisted and was feeling short of breath on exertion went to PCP last Saturday on July 18. Chest x-ray was done which showed left lower lobe pneumonia. Amoxicillin and azithromycin were prescribed. But mother went through the side effects of azithromycin and as patient was having palpitations she thought she will discuss with Doctors before starting it and it was not given. Patient took only amoxicillin. After starting amoxicillin patient developed some rash on her left upper extremity for that reason they came to the ER. By the time patient came to the ER the rash has resolved. But in the ER she was found to be hypoxic 87% on room air and somewhat tachycardic and hypotensive ,blood pressure 84/52. With oxygen 2 L she is saturating fine and with fluids blood pressure improved and tachycardia improved. Currently resting comfortably and hemodynamically stable and able to give her history. Currently denies any headache. Vision is okay. No runny nose. Feels some congestion in the left ear. Denies any chest pain. No nausea. Appetite is not great. No abdominal pain. Normal bowel and bladder movements. Past medical history. As mentioned above Past surgical history. None as per records Social history. No smoking. No alcohol use. No drug use. Family history. Mother has history of carditis with SVT and Lyme disease Admission Exam Per Admitting Provider General- Not in distress. Head- atraumatic Eyes- PERRL. ENT- oropharynx clear Neck- supple, no JVD. Lungs- clear to auscultation no wheezing or crackles Heart- regular rate and rhythm; no murmur, no gallop. Abdomen- normal bowel sounds, no distension seen Extremities- no pretibial edema, no erythema seen Neuro- alert, oriented PERRL, no facial palsy; no dysarthria; moves extremities Discharge Exam General- oriented x 3, not in distress, speaks in sentences with no effort or accessory muscle use Eyes- anicteric Neck- no JVD Lungs-Positive mild crackles left base, clear on the right No wheezing Heart- normal rate, regular rhythm; no murmurs Abdomen- normal bowel sounds, nondistended, soft, no tenderness Extremities- no pretibial edema, no calf tenderness Neuro- alert, oriented x 3; no gross focal neurologic deficits Skin- warm & dry Updated Medication List Medication Instructions Recorded Confirmed Type amoxicillin 500 mg capsule 1,000 mg PO TID 07/20/24 07/20/24 History azithromycin 250 mg tablet 250 mg PO UD 07/20/24 07/20/24 History dextroamphetamine-amphetamine ER 15 mg PO UD 07/20/24 07/20/24 History 15 mg 24hr capsule,extend release cefuroxime axetil 500 mg tablet 500 mg PO BID 6 days #12 tabs 07/23/24 Rx fluticasone propionate 50 2 spray NA DAILY 7 days #16 grams 07/23/24 Rx mcg/actuation nasal spray,suspension guaifenesin 600 mg tablet, 1,200 mg (2 x 600 mg) PO Q12 7 07/23/24 Rx extended release 12 hr (Mucinex) days #28 tabs sodium chloride 7 % for 4 ml NEB BIDR 7 days #60 mL 07/23/24 Rx nebulization Hospital Stay Data Consultations 07/20/24 03:46 ED Decision to Admit Stat Diagnostic Imagining Performed 07/20/24 01:11 CT angio chest PE protocol Stat CT angio chest PE protocol CLINICAL HISTORY: SOB, atypical cxr as outpatient 117 cc opti 320 TECHNIQUE: Contiguous axial images were obtained from the neck base through the upper abdomen following intravenous administration of iodinated contrast material. Angiographic images were processed, 3D MIP images were acquired for interpretation. If IV contrast material had not been administered, the likelihood of detecting abnormalities relevant to the patient's condition would have been substantially decreased. Coronal and sagittal 3-D MIPs were likewise performed and indicated to increase the sensitivity of detectin diffuse clinically relevant pathology. CT scan was performed according to ALARA (as low as reasonable achievable). COMPARISON: - FINDINGS: Adequate contrast bolus without evidence of pulmonary embolism. The central airways are patent. A large patch of consolidation is seen in the left lower lobe of the lung with air-bronchogramn The rest of the lungs are clear. No pleural effusion. The heart, aorta, and pulmonary arteries are of normal size and configuration. There are no appreciable coronary artery and aortic atherosclerotic calcifications. No pericardial effusion is identified. The thyroid is unremarkable. No mediastinal, hilar, or axillary lymphadenopathy is noted. No suspicious lytic or sclerotic osseous lesions are identified. IMPRESSION: 1. No evidence of pulmonary embolism 2. Left lower lobe pneumonic consolidation Electronically signed by Willie Harrison 07-20-2024 04:18 AM Pending Results Patient Have Any Pending Studies at Discharge: No Discharge Instructions Given to Patient (Per Discharging Provider) PLEASE REFER TO YOUR NEW MEDICATION LIST AND FOLLOW INSTRUCTIONS CAREFULLY. YOUR NEW MEDICATIONS INCLUDE: Cefuroxime-antibiotic for pneumonia Mucinex-for cough, loosening mucus Hypertonic saline nebulizer treatments-also for loosening mucus Flonase-for nasal congestion Please take a probiotic daily for at least 1 month. ([employer] brand recommended). This is to prevent development of C. difficile diarrhea from antibiotics. Please drink plenty of water-8 to 10 glasses/day. Increase salt intake. PLEASE CALL YOUR PRIMARY CARE PHYSICIAN OR RETURN TO THE ER IF WITH WORSENING OF SYMPTOMS, INCLUDING Shortness of breath, cough, chest pain, fevers or chills, diarrhea, etc. FOLLOW UP WITH PRIMARY CARE PHYSICIAN In 1 week. Total Time Total Time Spent Total Time Spent (In Minutes): 60 minutes
[2024-07-23 16:10] VITALS: BP 88/50
== END 2024-07-23 16:44 | disposition home or self-care (01) | DRG 193 ==
LOC: ED 00:47 → 2N 04:27 → SUATTDRO 04:27 → 2N 05:59